=== PATIENT | female | born 1945 | race Caucasian/White ===

== ENCOUNTER 2016-11-08 19:40 | Emergency (ER) | payer OTHER ==
[~2016-11-08] VITALS: Ht 162.6 cm; Wt 77.1 kg
[2016-11-08 20:29] LABS: ABSOLUTE BASOPHIL COUNT 0 /CUMM (0.0-0.2); ABSOLUTE EOSINOPHIL COUNT 0.1 /CUMM (0.0-0.7); ABSOLUTE GRANULOCYTE CT 3.3 /CUMM (1.4-6.5); ABSOLUTE LYMPH COUNT 2.7 /CUMM (1.2-3.4); ABSOLUTE MONOCYTE COUNT 0.5 /CUMM (0.10-0.60); BASOPHIL % 0.2 % (0.0-2.0); EOSINOPHIL % 1.2 % (0-5); HEMATOCRIT 41.9 % (37-47); MEAN CORPUSCULAR HGB 31.9 PG (27.0-31.0); MEAN CORPUSCULAR HGB CONC 33.8 G/DL (33.0-37.0); MEAN CORPUSCULAR VOLUME 94.4 FL (81.0-99.0); MEAN PLATELET VOLUME 9.4 FL (7.4-10.4); PLATELET COUNT 190 /CUMM (130-400); RBC DISTRIBUTION WIDTH 13.5 % (11.5-14.5); RED BLOOD CELL CT 4.44 /CUMM (4.20-5.40); WHITE BLOOD CELL COUNT 6.7 /CUMM (4.8-10.8)
[2016-11-08 20:36] LABS: PT 11.5 SEC (9.4-12.5)
--- NOTE | 2016-11-08 21:18 | ED GI/GU/ABDOMINAL COMPLAINT ---
History of Present Illness General Chief Complaint: General Adult Stated Complaint: FOOD BOLUS Source: patient, family, old records Exam Limitations: no limitations Vital Signs & Intake/Output Vital Signs & Intake/Output Vital Signs Date Time Temp Pulse Resp B/P Pulse O2 O2 Flow FiO2 Ox Delivery Rate 11/09 0005 97.0 73 16 140/69 99 Room Air 11/08 2350 69 16 111/56 99 Room Air 11/08 2154 96.4 72 20 144/75 97 Room Air 11/08 1958 97.3 72 20 132/70 98 Room Air ED Intake and Output 11/09 0000 11/08 1200 Intake Total Output Total Balance Patient 170 lb Weight Allergies Coded Allergies: codeine (GI UPSET, VOMITING 11/08/16) Reconcile Medications Ascorbate Calcium (Vitamin C) (Unknown Strength) TABLET (Unknown Dose) PO DAILY SUPPLEMENT (Reported) Atorvastatin Calcium 20 MG TABLET 1 TAB PO DAILY CHOLESTEROL (Reported) Cholecalciferol (Vitamin D3) (Vitamin D) (Unknown Strength) TABLET (Unknown Dose) PO DAILY SUPPLEMENT (Reported) Estradiol (Vagifem) 10 MCG TABLET 1 TAB VAG 2XW HRT (Reported) Levothyroxine Sodium 75 MCG TABLET 1 TAB PO DAILY THYROID (Reported) Multivitamin (Multi-Day Vitamins) 1 EACH TABLET 1 TAB PO DAILY SUPPLEMENT ( Reported) Clayton-3 Fatty Acids/Fish Oil (Fish Oil 1,200 MG Softgel) (Unknown Strength) CAPSULE.DR (Unknown Dose) PO DAILY SUPPLEMENT (Reported) Zolpidem Tartrate 10 MG TABLET 1 TAB PO PRN SLEEP (Reported) Triage Note: PT TO ED C/O HAVING CALAMARI STUCK IN THROAT FOR 20 MINS. IS UNABLE TO DRINK WATER, IS SPITTING OUT SALIVA. O2 SAT 98% ON RA, NO STRIDER NOTED Triage Nurses Notes Reviewed? yes LMP (ages 10-50): post menopausal ? n Is pt currently ? No Onset: Just prior to arrival Duration: minute(s):, constant, continues in ED Timing: recent history Quality/Severity: severe Location: throat Radiation: no radiation Activities at Onset: eating Prior Abdominal Problems: similar symptoms Past Sexual History: Unobtainable at this time Modifying Factors: Worsens With: eating. HPI: Prior to admission after eating fried calamari she had difficulty swallowing fluids her own secretions that it was stuck deep in her throat. She denies fever chills nausea vomiting diarrhea abdominal pain chest pain shortness breath headache dysuria rash bleeding. She had an episode with meat 30 years ago requiring intervention. Past History Travel History Traveled to [place] past 21 day No Medical History Any Pertinent Medical History? see below for history Cardiovascular: hyperlipidemia Endocrine: hypothyroidism Surgical History Surgical History: non-contributory Psychosocial History What is your primary language Norwegian Tobacco Use: Quit >30 days ago ETOH Use: occasional use Illicit Drug Use: denies illicit drug use Family History Hx Contributory? No Review of Systems Review of Systems Constitutional: Reports: no symptoms. EENTM: Reports: no symptoms. Respiratory: Reports: no symptoms. Cardiovascular: Reports: no symptoms. GI: Reports: see HPI. Genitourinary: Reports: no symptoms. Musculoskeletal: Reports: no symptoms. Skin: Reports: no symptoms. Neurological/Psychological: Reports: no symptoms. Hematologic/Endocrine: Reports: no symptoms. Immunologic/Allergic: Reports: no symptoms. All Other Systems: Reviewed and Negative Physical Exam Physical Exam General Appearance: well developed/nourished, alert, awake, anxious, severe distress Head: atraumatic, normal appearance Eyes: Bilateral: normal appearance, PERRL, EOMI, normal inspection. Ears, Nose, Throat, Mouth: hearing grossly normal, moist mucous membrane Neck: normal inspection, supple, full range of motion, normal alignment Respiratory: normal breath sounds, chest non-tender, no respiratory distress, quiet respiration, lungs clear Cardiovascular: regular rate/rhythm, normal peripheral pulses, norml femoral pulses equa Peripheral Pulses: 4+ carotid (R), 4+ carotid (L) Gastrointestinal: normal bowel sounds, soft, non-tender, no organomegaly Back: normal inspection, normal range of motion Extremities: normal range of motion, no ligament instability Neurologic/Psych: no motor/sensory deficits, awake, alert, oriented x 3, normal gait, normal mood/affect Skin: intact, normal color, warm/dry Core Measures ACS in differential dx? No Severe Sepsis Present: No Septic Shock Present: No Progress Differential Diagnosis: gastritis, PUD/GERD Plan of Care: Orders Procedure Date/time Status PROTHROMBIN TIME 11/08 2018 Complete COMPREHENSIVE METABOLIC PANEL 11/08 2018 Complete CBC WITHOUT DIFFERENTIAL 11/08 2018 Complete Laboratory Tests 11/08/162021: Anion Gap 10, Estimated GFR > 60, BUN/Creatinine Ratio 17.5, Glucose 84, Calcium 9.6, Total Bilirubin 0.4, AST 22, ALT 31, Alkaline Phosphatase 81, Total Protein 7.2, Albumin 4.1, Globulin 3.1, Albumin/Globulin Ratio 1.3, PT 11.5, INR 1.10, CBC w Diff NO MAN DIFF REQ, RBC 4.44, MCV 94.4, MCH 31.9 H, RDW 13.5, MPV 9.4, Gran % 50.0, Lymphocytes % 41.0, Monocytes % 7.6, Eosinophils % 1.2, Basophils % 0.2, Absolute Granulocytes 3.3, Absolute Lymphocytes 2.7, Absolute Monocytes 0.5 , Absolute Eosinophils 0.1, Absolute Basophils 0, PUBS MCHC 33.8 Diagnostic Imaging: Viewed by Me: Radiology Read. Discussed w/RAD: Radiology Read. Radiology Impression: no acute abnormality, no foreign body seen CXR Impression: no acute abnormality, no infiltrates Initial ED EKG: none Departure Departure Time of Disposition: 14 Disposition: HOME OR SELF CARE Condition: Stable Clinical Impression Primary Impression: Food impaction of esophagus Qualifiers: Encounter type: initial encounter Qualified Code: T18.128A - Food in esophagus causing other injury, initial encounter Referrals: STEVEN OBANDO MD Call for GI follow up JACOB GRAHAM,MINAL Pate (PCP/Family) Additional Instructions: Soft diet for 1 week Departure Forms: Customer Survey General Discharge Information
[2016-11-08] MEDS ORDERED: ZOLPIDEM TARTRA10 M1 PO (21:22)
[2016-11-08] MEDS ORDERED: LEVOTHYROXINE75 MCG PO (21:22)
[2016-11-08] MEDS ORDERED: ATORVASTATIN CA20 M1 PO (21:22)
[2016-11-08] MEDS ORDERED: VITAMIN D2000 UNI1 PO (21:23)
[2016-11-08] MEDS ORDERED: VAGIFEM10 MC1 VAG (21:23)
[2016-11-08] MEDS ORDERED: VITAMIN C500 M6 PO (21:23)
[2016-11-08] MEDS ORDERED: FISH OIL 1,2001 EAC1 PO (21:24)
[2016-11-08] MEDS ORDERED: MULTI-DAY VITA1 EACH PO (21:24)
--- NOTE | 2016-11-08 21:28 | RADIOLOGY REPORT ---
EXAMINATION: XR SOFT TISSUE NECK CLINICAL INDICATION: Food impaction. COMPARISON: None TECHNIQUE: Frontal and lateral views of the neck with attention to soft tissues FINDINGS: There is no ectopic gas. The epiglottis is not enlarged. The aryepiglottic folds are sharply defined. There is no definite opaque foreign body. There are some degenerative changes in the spine IMPRESSION: No definite opaque foreign body. No ectopic gas.
--- NOTE | 2016-11-08 21:30 | RADIOLOGY REPORT ---
EXAMINATION: XR CHEST CLINICAL INFORMATION: Food impaction COMPARISON: None TECHNIQUE: 2 views of the chest were obtained. FINDINGS: There is slight rotation to left. There is calcification of aortic arch. The cardiac size, mediastinal contours, clarissa, vasculature, lungs and visualized pleural margins appear within normal limits. There is no opaque foreign body demonstrated. There is no ectopic gas. IMPRESSION: No acute chest disease. No opaque foreign body.
--- NOTE | 2016-11-08 23:13 | Proc Note Endoscopy ---
Endoscopy Procedure Medical History: unchanged (see paper chart) Mental Status: alert/oriented Heart/Lung Eval Prior to Sedation: within normal limits Candidate for Sedation? Yes Procedure Date: 11/08/16 Procedure Type: EGD with foreign body removal. [employer] Refiner: Robbie Norris MD ASA Classification: II Indications: Dysphagia, food impaction. Instrument: diagnostic gastroscope Meds Received: MAC Patient's Tolerance: good Complications: none Extent Reached: second part of duodenum Procedure: After getting written informed consent the patient was placed in the left lateral decubitus position with pulse oximetry, cardiac monitoring, and supplemental oxygen given. A bite block was inserted and IV sedation was given until the desired effect was achieved. A high definition upper Olympus endoscope was then inserted into the mouth and advanced to the upper esophagus at which point a piece of unchewed calmari was encountered (tentacles and all). The calmari was able to be pushed down the esophagus with pressure applied by the scope and then into the stomach. The scope was able to be advanced to the second portion of the duodenum with little difficulty. Retroflexed views and photodocumentation was obtained. Findings: Esophagus: After the piece of, or he was removed from the upper esophagus the underlying mucosa was examined and appeared somewhat inflamed and there also appeared to be an inlet patch and the suggestion of a web. There was no resistance to passing the scope once the food bolus was removed. The remainder of the esophageal mucosa was grossly normal in appearance. The Z line was located at 40 cm from the incisors and was normal in appearance without any erosions, ulcers, strictures, or masses appreciated. Stomach: The gastric mucosa was grossly normal in appearance. There were no ulcers, erosions, or masses appreciated. Distention and peristalsis of the stomach appeared normal. Retroflexed views revealed the previously removed piece of food, but no significant hiatal hernia. Duodenum: The duodenal bulb, sweep, and folds were grossly normal in appearance. Impression: 1. Food bolus and upper esophagus status post removal via pushing the food down the esophagus with the endoscope. 2. Suggestion of upper esophageal web and an inlet patch, biopsies deferred. Recommendations: 1. She should follow an antireflux regimen. 2. She is H2 RA's or [id number] PPIs as needed for dyspeptic symptoms or heartburn. 3. She was asked to follow-up with her PCP for routine healthcare maintenance and it was recommended that she follow-up with a tubing machine tender near where she lives to give consideration to repeat the upper endoscopy to re-examine the upper esophageal mucosa and rule out any underlying pathology. CC: JACOB GRAHAM,MINAL Pate
[2016-11-09 00:05] VITALS: BP 140/69
== END 2016-11-09 00:16 ==
LOC: ERH 19:40
PROVIDERS: Emergency Medicine
DX: T18.108A Unspecified foreign body in esophagus causing other injury, initial encounter (principal)
CPT/HCPCS: 70360; 96374; 96375; J1610; J2765